=== PATIENT | male | born 1970 | race Caucasian/White ===

== ENCOUNTER 2016-12-18 04:05 | Emergency (ER) | payer BC ==
[2016-12-18 04:33] VITALS: TEMP 98.8
[2016-12-18] MEDS ORDERED: ALBUTEROL/IPRATROPIUM 1 VIAL SOL ONE (04:36)
[2016-12-18] MEDS ORDERED: ALBUTEROL/IPRATROPIUM 1 VIAL SOL INH ONE (04:39)
[2016-12-18 05:04] LABS: CALCIUM 8.3 mg/dl (8.5-10.1); GLOM FILT RATE 86 mL/min (>60); POTASSIUM 3.5 mMol/L (3.5-5.1); SODIUM 140 mMol/L (136-145)
[2016-12-18 05:36] VITALS: BP 139/73; PULSE 72; RESP 15; O2SAT 93
== END 2016-12-18 05:30 | disposition home or self-care (01) ==
LOC: ED 04:05
DX: R06.00 Dyspnea, unspecified (principal)
CPT/HCPCS: 36415; 71020; 80048; 84484; 85018; 85378; 93005; 99282; 99284; J7620